=== PATIENT | female | born 1965 | race African-American/Black ===

== ENCOUNTER 2020-04-25 18:58 | Inpatient (IN) | payer MEDICAID ==
[~2020-04-25] VITALS: Ht 165.1 cm; Wt 97.1 kg
[2020-04-25] MEDS ORDERED: DILTIAZEM HCL 5MG/ML 5ML VIAL IV ONE (19:30)
[2020-04-25 19:50] LABS: BASOPHILS % 1.3 % (0.0-2.0); EOSINOPHILS % 10.3 % (0.0-5.0); HEMATOCRIT. 31.5 % (36.0-48.0); HEMOGLOBIN. 10.8 g/dL (12.0-16.0); LYMPHOCYTES % 22.9 % (20.0-50.0); MEAN CORPUSCULAR VOLUME 93.3 fL (81.0-99.0); MEAN PLATELET VOLUME 9.7 fl (7.4-10.4); MONOCYTES % 8.2 % (2.0-8.0); NEUTROPHILS % 57.3 % (40.0-76.0); PLATELET 234 x1000/uL (130-400); RED BLOOD CELL COUNT 3.38 mill/uL (4.2-5.4)
[2020-04-25 19:56] LABS: CHLORIDE 107 mEq/L (98-107)
[2020-04-25 20:00] LABS: INR 1.1; PARTIAL THROMBOPLASTIN TIME 30.5 sec (23.4-31.0); PROTHROMBIN TIME 11.9 sec (9.6-11.0)
[2020-04-25] MEDS ORDERED: DILTIAZEM HCL 180MG CAPSULE CD 24HR PO ONE (20:00)
[2020-04-25 23:10] VITALS: BP 173/85
[2020-04-26] VITALS (12 sets, daily range): BP systolic 128–173; BP diastolic 67–101
[2020-04-26] MEDS ORDERED: DIPHENHYDRAMINE 50MG/ML VIAL IV PRN (01:15)
[2020-04-26] MEDS ORDERED: ONDANSETRON HCL 4MG/2ML INJ IV PRN (01:15)
[2020-04-26] MEDS ORDERED: CLONIDINE 0.1MG TABLET PO PRN (01:15)
[2020-04-26] MEDS ORDERED: SIMETHICONE 80MG TABLET CHEW PO PRN (01:15)
[2020-04-26] MEDS ORDERED: ACETAMINOPHEN 325MG TABLET PO PRN (01:15)
[2020-04-26] MEDS ORDERED: GUAIFENESIN-DM 200MG-20MG/10ML UDC PO PRN ×2 (01:15→15:15)
[2020-04-26] MEDS ORDERED: DOCUSATE SODIUM 250MG CAPSULE PO PRN (01:15)
[2020-04-26] MEDS ORDERED: DOCU250C14 MT (01:16)
[2020-04-26] MEDS ORDERED: TUSSL MT (01:16)
[2020-04-26] MEDS ORDERED: COR6 MT (01:16)
[2020-04-26] MEDS ORDERED: CARD12 PO (01:16)
[2020-04-26] MEDS ORDERED: APIX2.5T MT (01:16)
[2020-04-26] MEDS ORDERED: CINA30 MT (01:16)
[2020-04-26] MEDS ORDERED: SIME80TA15 MT (01:16)
[2020-04-26 06:17] LABS: PHOSPHORUS 4.9 mg/dL (2.5-4.9)
[2020-04-26 06:27] LABS: BASOPHILS % 1.1 % (0.0-2.0); EOSINOPHILS % 12.2 % (0.0-5.0); HEMATOCRIT. 28.8 % (36.0-48.0); HEMOGLOBIN. 9.9 g/dL (12.0-16.0); LYMPHOCYTES % 28.1 % (20.0-50.0); MEAN CORPUSCULAR HEMOGLOBIN 32.2 pg (28.0-32.0); MEAN CORPUSCULAR VOLUME 93.3 fL (81.0-99.0); MEAN PLATELET VOLUME 9.5 fl (7.4-10.4); NEUTROPHILS % 49.6 % (40.0-76.0); PLATELET 187 x1000/uL (130-400); RED BLOOD CELL COUNT 3.09 mill/uL (4.2-5.4); RED CELL DISTRIBUTION WIDTH 17.1 % (11.6-14.6)
[2020-04-26] MEDS: CINACALCET HCL 30MG TABLET PO SCH (08:53)
[2020-04-26] MEDS: DILTIAZEM HCL 180MG CAPSULE CD 24HR PO SCH (08:55)
[2020-04-26] MEDS: CARVEDILOL 6.25 MG TABLET PO SCH ×2 (08:55→20:13)
[2020-04-26] MEDS ORDERED: APIXABAN 2.5 MG TABLET PO SCH (09:00)
[2020-04-26] MEDS: APIXABAN 5 MG TABLET PO SCH (20:12)
[2020-04-26] MEDS ORDERED: ATORVASTATIN CALCIUM 20MG TABLET PO SCH (21:00)
[2020-04-27] VITALS (11 sets, daily range): BP systolic 105–155; BP diastolic 71–96
[2020-04-27] MEDS: CINACALCET HCL 30MG TABLET PO SCH (09:28)
[2020-04-27] MEDS: CARVEDILOL 6.25 MG TABLET PO SCH (09:30)
[2020-04-27] MEDS: DILTIAZEM HCL 180MG CAPSULE CD 24HR PO SCH (09:32)
[2020-04-27] MEDS: APIXABAN 5 MG TABLET PO SCH (09:32)
[2020-04-27] MEDS ORDERED: SIME80TA15 MT (12:59)
[2020-04-27] MEDS ORDERED: TUSSL MT (12:59)
[2020-04-27] MEDS ORDERED: APIXABAN 2.5 MG TABLET PO SCH (21:00)
[2020-07-07] MEDS ORDERED: DILT120C88 PO (12:14)
[2020-07-09] MEDS ORDERED: DIPH28.34 TP (11:28)
== END 2020-04-27 18:39 | disposition home or self-care (01) | DRG 201 ==
LOC: ER 18:58 → 5EST 22:29 → CANRESERV 22:35 → ENRESERV 22:35
PROVIDERS: ADMIT Internal Medicine; ATTEND Internal Medicine
PROC: 5A1D70Z Performance of Urinary Filtration, Intermittent, Less than 6 Hours Per Day (ICD-10-PCS; principal; 2020-04-27)
DX: I48.20 Chronic atrial fibrillation, unspecified (principal); E11.22 Type 2 diabetes mellitus with diabetic chronic kidney disease; E66.01 Morbid (severe) obesity due to excess calories; E78.5 Hyperlipidemia, unspecified; I13.2 Hypertensive heart and chronic kidney disease with heart failure and with stage 5 chronic kidney disease, or end stage renal disease; I42.9 Cardiomyopathy, unspecified; I25.10 Atherosclerotic heart disease of native coronary artery without angina pectoris; D64.9 Anemia, unspecified; I50.9 Heart failure, unspecified; J45.909 Unspecified asthma, uncomplicated; N18.6 End stage renal disease; Z79.01 Long term (current) use of anticoagulants; Z87.01 Personal history of pneumonia (recurrent); Z95.810 Presence of automatic (implantable) cardiac defibrillator; Z99.2 Dependence on renal dialysis; Z71.3 Dietary counseling and surveillance; Z68.35 Body mass index [BMI] 35.0-35.9, adult
CPT/HCPCS: 36415; 71045; 80048; 80053; 80061; 83880; 84100; 84484; 85025; 93005; 93306; 93970; 96374; 99285; J3490

== ENCOUNTER 2020-06-29 11:40 | Inpatient (IN) | payer MEDICARE, MEDICAID ==
[~2020-06-29] VITALS: Ht 165.1 cm; Wt 98.0 kg
[~2020-06-29 11:40] MED LIST: APIX2.5T MT; CARD12 PO; CINA30 MT; COR6 MT; DOCU250C14 MT; SIME80TA15 MT; TUSSL MT
[2020-06-29 13:06] LABS: BASOPHILS % 0.9 % (0.0-2.0); EOSINOPHILS % 7.4 % (0.0-5.0); HEMATOCRIT. 31.2 % (36.0-48.0); HEMOGLOBIN. 10.8 g/dL (12.0-16.0); LYMPHOCYTES % 22.9 % (20.0-50.0); MEAN CORPUSCULAR VOLUME 95.8 fL (81.0-99.0); MEAN PLATELET VOLUME 9.1 fl (7.4-10.4); MONOCYTES % 6.4 % (2.0-8.0); NEUTROPHILS % 62.4 % (40.0-76.0); PLATELET 151 x1000/uL (130-400); RED BLOOD CELL COUNT 3.26 mill/uL (4.2-5.4); RED CELL DISTRIBUTION WIDTH 16.6 % (11.6-14.6)
[2020-06-29 13:14] LABS: CHLORIDE 104 mEq/L (98-107)
[2020-06-29 13:19] LABS: PHOSPHORUS 3.4 mg/dL (2.5-4.9)
[2020-06-29] MEDS ORDERED: APIXABAN 5 MG TABLET PO STA (13:25)
[2020-06-29] MEDS ORDERED: ONDANSETRON HCL 4MG/2ML INJ IV PRN (13:45)
[2020-06-29] MEDS ORDERED: DOCUSATE SODIUM 250MG CAPSULE PO PRN (13:45)
[2020-06-29] MEDS ORDERED: SIMETHICONE 80MG TABLET CHEW PO PRN (13:45)
[2020-06-29] MEDS ORDERED: GUAIFENESIN-DM 200MG-20MG/10ML UDC PO PRN (13:45)
[2020-06-29] MEDS ORDERED: TRAZODONE HCL 50MG TABLET PO PRN (13:45)
[2020-06-29] MEDS ORDERED: DILTIAZEM HCL 120MG CAPSULE CD 24HR PO ONE (15:00)
[2020-06-29] MEDS: DILTIAZEM HCL 30MG TABLET PO SCH (18:12)
[2020-06-29] MEDS ORDERED: DILTIAZEM HCL 5MG/ML 5ML VIAL IV PRN (19:30)
[2020-06-29] MEDS: ACETAMINOPHEN 325MG TABLET PO PRN (19:36)
[2020-06-29 20:40] VITALS: BP 133/81
[2020-06-29] MEDS ORDERED: CARVEDILOL 6.25 MG TABLET PO SCH (21:00)
[2020-06-29] MEDS: APIXABAN 2.5 MG TABLET PO SCH (21:22)
[2020-06-29] MEDS: CARVEDILOL 3.125 MG TABLET PO SCH (21:25)
[2020-06-29 21:28] VITALS: BP 133/81
[2020-06-30] VITALS: BP 121/64
[2020-06-30] MEDS: DILTIAZEM HCL 30MG TABLET PO SCH ×6 (00:25→21:38)
[2020-06-30 04:00] VITALS: BP 128/79
[2020-06-30] MEDS: CINACALCET HCL 30MG TABLET PO SCH (06:08)
[2020-06-30 07:04] LABS: CHLORIDE 105 mEq/L (98-107)
[2020-06-30 07:14] LABS: T4 FREE 0.95 ng/dL (0.76-1.46)
[2020-06-30 07:16] LABS: BASOPHILS % 0.7 % (0.0-2.0); EOSINOPHILS % 9.8 % (0.0-5.0); HEMATOCRIT. 31.3 % (36.0-48.0); HEMOGLOBIN. 10.9 g/dL (12.0-16.0); LYMPHOCYTES % 26.4 % (20.0-50.0); MEAN CORPUSCULAR HEMOGLOBIN 33.4 pg (28.0-32.0); MEAN CORPUSCULAR VOLUME 96.1 fL (81.0-99.0); MEAN PLATELET VOLUME 9.7 fl (7.4-10.4); MONOCYTES % 7.1 % (2.0-8.0); PLATELET 154 x1000/uL (130-400); RED BLOOD CELL COUNT 3.26 mill/uL (4.2-5.4); RED CELL DISTRIBUTION WIDTH 16.5 % (11.6-14.6)
[2020-06-30 08:00] VITALS: BP 130/89
[2020-06-30] MEDS ORDERED: DILTIAZEM HCL 180MG CAPSULE CD 24HR PO SCH (09:00)
[2020-06-30] MEDS: APIXABAN 2.5 MG TABLET PO SCH ×2 (09:44→16:41)
[2020-06-30] MEDS: CARVEDILOL 3.125 MG TABLET PO SCH ×2 (09:44→21:38)
[2020-06-30 12:00] VITALS: BP 111/80
[2020-06-30] MEDS ORDERED: DEXTROSE 50% WATER 50ML SYRINGE IV PRN (15:00)
[2020-06-30] MEDS ORDERED: IPRATROPIUM BROMIDE (0.02%) 0.5MG/2.5ML NEB HHN PRN (15:00)
[2020-06-30 16:09] VITALS: BP 126/63
[2020-06-30] MEDS: PSYLLIUM SEED PACKET PO SCH (16:41)
[2020-06-30] MEDS: BLOOD SUGAR DIAGNOSTIC STRIP TEST SCH ×2 (16:56→21:00)
[2020-06-30 20:00] VITALS: BP 119/60
[2020-07-01] VITALS (7 sets, daily range): BP systolic 103–124; BP diastolic 59–75
[2020-07-01] MEDS: DILTIAZEM HCL 30MG TABLET PO SCH ×3 (06:30→18:14)
[2020-07-01 07:09] LABS: EOSINOPHILS % 12.3 % (0.0-5.0); HEMOGLOBIN. 10.4 g/dL (12.0-16.0); LYMPHOCYTES % 27.5 % (20.0-50.0); MEAN CORPUSCULAR HEMOGLOBIN 33.2 pg (28.0-32.0); MEAN CORPUSCULAR VOLUME 95.8 fL (81.0-99.0); MEAN PLATELET VOLUME 9.7 fl (7.4-10.4); MONOCYTES % 8.4 % (2.0-8.0); NEUTROPHILS % 50.8 % (40.0-76.0); PLATELET 140 x1000/uL (130-400); RED BLOOD CELL COUNT 3.13 mill/uL (4.2-5.4); RED CELL DISTRIBUTION WIDTH 16.2 % (11.6-14.6)
[2020-07-01] MEDS: BLOOD SUGAR DIAGNOSTIC STRIP TEST SCH ×4 (07:10→21:07)
[2020-07-01 07:36] LABS: CHLORIDE 105 mEq/L (98-107)
[2020-07-01] MEDS: CARVEDILOL 3.125 MG TABLET PO SCH ×2 (08:59→21:14)
[2020-07-01] MEDS: PSYLLIUM SEED PACKET PO SCH ×2 (09:00→12:39)
[2020-07-01] MEDS: CINACALCET HCL 30MG TABLET PO SCH (09:11)
[2020-07-01] MEDS: APIXABAN 2.5 MG TABLET PO SCH ×2 (09:11→18:14)
[2020-07-01] MEDS ORDERED: DIGOXIN 500MCG/2ML AMP IV PRN (10:45)
[2020-07-02] VITALS: BP 112/74
[2020-07-02] MEDS: DILTIAZEM HCL 30MG TABLET PO SCH ×3 (00:33→12:34)
[2020-07-02 04:00] VITALS: BP 125/88
[2020-07-02 06:28] LABS: BASOPHILS % 1.1 % (0.0-2.0); EOSINOPHILS % 12.5 % (0.0-5.0); HEMATOCRIT. 31.2 % (36.0-48.0); HEMOGLOBIN. 10.7 g/dL (12.0-16.0); LYMPHOCYTES % 29.6 % (20.0-50.0); MEAN CORPUSCULAR VOLUME 96.2 fL (81.0-99.0); MEAN PLATELET VOLUME 9.8 fl (7.4-10.4); MONOCYTES % 8.3 % (2.0-8.0); NEUTROPHILS % 48.5 % (40.0-76.0); PLATELET 151 x1000/uL (130-400); RED BLOOD CELL COUNT 3.24 mill/uL (4.2-5.4); RED CELL DISTRIBUTION WIDTH 16.5 % (11.6-14.6)
[2020-07-02] MEDS: BLOOD SUGAR DIAGNOSTIC STRIP TEST SCH ×2 (06:44→12:28)
[2020-07-02 06:47] LABS: CHLORIDE 107 mEq/L (98-107)
[2020-07-02 08:00] VITALS: BP 99/51
[2020-07-02] MEDS: CARVEDILOL 3.125 MG TABLET PO SCH (09:00)
[2020-07-02] MEDS: APIXABAN 2.5 MG TABLET PO SCH (09:21)
[2020-07-02] MEDS: CINACALCET HCL 30MG TABLET PO SCH (09:21)
[2020-07-02] MEDS: ACETAMINOPHEN 325MG TABLET PO PRN (09:26)
[2020-07-02 12:00] VITALS: BP 132/78
[2020-07-02 16:00] VITALS: BP 122/87
[2020-07-02 16:17] VITALS: BP 20/132
== END 2020-07-02 17:00 | DRG 308 ==
LOC: ER 11:40 → 8WST 12:57 → ENRESERV 18:31
PROVIDERS: ADMIT Internal Medicine; ATTEND Internal Medicine
PROC: 5A1D70Z Performance of Urinary Filtration, Intermittent, Less than 6 Hours Per Day (ICD-10-PCS; principal; 2020-06-29)
PROC: 5A1D70Z Performance of Urinary Filtration, Intermittent, Less than 6 Hours Per Day (ICD-10-PCS; 2020-07-01)
PROC: 5A1D70Z Performance of Urinary Filtration, Intermittent, Less than 6 Hours Per Day (ICD-10-PCS; 2020-07-02)
DX: I48.19 Other persistent atrial fibrillation (principal); N18.6 End stage renal disease; I13.2 Hypertensive heart and chronic kidney disease with heart failure and with stage 5 chronic kidney disease, or end stage renal disease; D61.818 Other pancytopenia; I31.3 Pericardial effusion (noninflammatory); I50.22 Chronic systolic (congestive) heart failure; I42.0 Dilated cardiomyopathy; E11.649 Type 2 diabetes mellitus with hypoglycemia without coma; E66.01 Morbid (severe) obesity due to excess calories; I49.5 Sick sinus syndrome; E05.90 Thyrotoxicosis, unspecified without thyrotoxic crisis or storm; E78.5 Hyperlipidemia, unspecified; E11.42 Type 2 diabetes mellitus with diabetic polyneuropathy; R26.9 Unspecified abnormalities of gait and mobility; J45.909 Unspecified asthma, uncomplicated; N25.0 Renal osteodystrophy; I27.20 Pulmonary hypertension, unspecified; E11.22 Type 2 diabetes mellitus with diabetic chronic kidney disease; Z99.2 Dependence on renal dialysis; Z79.01 Long term (current) use of anticoagulants; Z95.810 Presence of automatic (implantable) cardiac defibrillator; Z68.35 Body mass index [BMI] 35.0-35.9, adult; Z79.899 Other long term (current) drug therapy; Z82.3 Family history of stroke; Z82.49 Family history of ischemic heart disease and other diseases of the circulatory system; D64.9 Anemia, unspecified; R00.0 Tachycardia, unspecified
CPT/HCPCS: 36415; 71045; 80053; 82962; 83036; 83735; 84100; 84439; 84443; 84484; 85025; 93005; 93306; 97116; 97162; 97166; 97535; 99285

== ENCOUNTER 2022-01-02 22:31 | Inpatient (IN) | payer MEDICARE, MEDICAID ==
[~2022-01-02] VITALS: Ht 165.1 cm; Wt 97.2 kg
[~2022-01-02 22:31] MED LIST changes: +ALBU6.7H15 INH; -CARD12 PO; +DEX6 PO; +DILT120C88 PO; +DIPH28.34 TP; +FLUT1DIS3 INH
[2022-01-02] MEDS ORDERED: IPRATROPIUM BROMIDE (0.02%) 0.5MG/2.5ML NEB HHN STA (23:04)
[2022-01-02] MEDS ORDERED: ALBUTEROL (0.083%) 2.5MG/3ML NEB HHN STA (23:04)
[2022-01-02] MEDS ORDERED: METHYLPREDNISOLONE SOD SUCC 125 MG/2 ML VIAL IV STA (23:04)
[2022-01-02 23:19] LABS: BASOPHILS % 1.2 % (0.0-2.0); EOSINOPHILS % 2.5 % (0.0-5.0); HEMATOCRIT. 29.8 % (36.0-48.0); HEMOGLOBIN. 10.6 g/dL (12.0-16.0); LYMPHOCYTES % 24.2 % (20.0-50.0); MEAN CORPUSCULAR HEMOGLOBIN 35.5 pg (28.0-32.0); MEAN PLATELET VOLUME 9.3 fl (7.4-10.4); MONOCYTES % 7.2 % (2.0-8.0); NEUTROPHILS % 64.9 % (40.0-76.0); PLATELET 154 x1000/uL (130-400); RED BLOOD CELL COUNT 2.98 mill/uL (4.2-5.4); RED CELL DISTRIBUTION WIDTH 16.7 % (11.6-14.6)
[2022-01-02 23:25] LABS: CHLORIDE 100 mEq/L (98-107)
[2022-01-03] MEDS ORDERED: MAGNESIUM/ALUMINUM HYDROXIDE/SIMETHICONE 30ML UDC PO PRN (08:15)
[2022-01-03] MEDS ORDERED: IPRATROPIUM/ALBUTEROL 0.5-3(2.5)MG/3ML NEB NEB PRN ×2 (08:15→15:00)
[2022-01-03] MEDS ORDERED: ACETAMINOPHEN 325MG TABLET PO PRN ×2 (08:15)
[2022-01-03] MEDS ORDERED: ENOXAPARIN 40MG/0.4ML SYR SUBCUT SCH (08:15)
[2022-01-03] MEDS ORDERED: ONDANSETRON HCL 4MG/2ML INJ IV PRN (08:15)
[2022-01-03] MEDS ORDERED: HYDROCODONE/ACETAMINOPHEN 5/325MG TABLET PO PRN (08:15)
[2022-01-03] MEDS ORDERED: GUAIFENESIN 200MG/10ML SUGAR FREE UDC PO PRN (08:15)
[2022-01-03] MEDS ORDERED: CLONIDINE 0.1MG TABLET PO PRN (08:15)
[2022-01-03] MEDS ORDERED: ENOXAPARIN 30MG/0.3ML SYR SUBCUT SCH (09:00)
[2022-01-03] MEDS ORDERED: NALOXONE HCL 0.4MG/ML VIAL IV PRN (10:30)
[2022-01-03] MEDS ORDERED: APIX5TAB MT (11:09)
[2022-01-03 12:00] VITALS: BP_SYST 134; BP_DIAS 83; BP_DIAS 92
[2022-01-03] MEDS: CARVEDILOL 6.25 MG TABLET PO SCH ×2 (12:29→17:36)
[2022-01-03] MEDS: APIXABAN 5 MG TABLET PO SCH ×2 (12:29→17:35)
[2022-01-03] MEDS: CINACALCET HCL 30MG TABLET PO SCH (12:29)
[2022-01-03 14:04] LABS: HEPATITIS B SURFACE ANTIGEN NEGATIVE
[2022-01-03] MEDS ORDERED: MAGNESIUM HYDROXIDE 400MG/5ML 30ML UDC PO PRN (15:00)
[2022-01-03] MEDS ORDERED: GUAIFENESIN/DM 600MG/30MG ER TAB 12HR PO PRN (15:00)
[2022-01-03] MEDS ORDERED: IPRATROPIUM/ALBUTEROL 0.5-3(2.5)MG/3ML NEB NEB SCH (15:00)
[2022-01-03 16:00] VITALS: BP 109/74
[2022-01-03] MEDS: POLYETHYLENE GLYCOL 3350 (17GM) 1 DOSE PACK PO SCH (17:35)
[2022-01-03] MEDS: PREDNISONE 20MG TABLET PO SCH (17:35)
[2022-01-03 20:00] VITALS: BP 125/74
[2022-01-04] VITALS: BP 112/67
[2022-01-04 04:30] VITALS: BP 104/55
[2022-01-04 06:11] LABS: HEMATOCRIT. 27.5 % (36.0-48.0); HEMOGLOBIN. 9.7 g/dL (12.0-16.0); MEAN CORPUSCULAR HEMOGLOBIN 35.3 pg (28.0-32.0); MEAN CORPUSCULAR VOLUME 99.9 fL (81.0-99.0); MEAN PLATELET VOLUME 10.2 fl (7.4-10.4); PLATELET 124 x1000/uL (130-400); RED BLOOD CELL COUNT 2.76 mill/uL (4.2-5.4); RED CELL DISTRIBUTION WIDTH 16.8 % (11.6-14.6)
[2022-01-04 06:23] LABS: PHOSPHORUS 4.6 mg/dL (2.5-4.9)
[2022-01-04] MEDS: PREDNISONE 20MG TABLET PO SCH (07:55)
[2022-01-04] MEDS: POLYETHYLENE GLYCOL 3350 (17GM) 1 DOSE PACK PO SCH (07:55)
[2022-01-04] MEDS: CINACALCET HCL 30MG TABLET PO SCH (07:55)
[2022-01-04] MEDS: APIXABAN 5 MG TABLET PO SCH ×2 (07:56→17:09)
[2022-01-04] MEDS: CARVEDILOL 6.25 MG TABLET PO SCH ×2 (07:57→17:00)
[2022-01-04 08:00] VITALS: BP 116/73
[2022-01-04 09:24] LABS: PLATELET ESTIMATE SLIGHTLY DECREASED
[2022-01-04] MEDS ORDERED: HYDR-4134 PO (11:49)
[2022-01-04 12:00] VITALS: BP 108/76
[2022-01-04] MEDS ORDERED: DILTIAZEM HCL 30MG TABLET PO SCH (14:00)
[2022-01-04] MEDS ORDERED: MYL30 PO (14:17)
[2022-01-04] MEDS ORDERED: POLY17PO3 PO (14:17)
[2022-01-04] MEDS ORDERED: GUAI-741 PO (14:17)
[2022-01-04] MEDS ORDERED: P20 PO (14:45)
[2022-01-04 16:00] VITALS: BP 116/48
[2022-01-04 16:50] VITALS: BP 116/48
== END 2022-01-04 17:50 | disposition home health service (06) | DRG 202 ==
LOC: ER 22:31 → MICUSO 01-03 03:11 → EDBEDREQ 01-03 03:20 → EDBEDREQDT 01-03 03:20 → EDBEDREQTM 01-03 03:20 → 8WST 01-03 10:57
PROVIDERS: ADMIT Internal Medicine; ATTEND Internal Medicine
PROC: 4B02XTZ Measurement of Cardiac Defibrillator, External Approach (ICD-10-PCS; principal; 2022-01-04)
PROC: 5A1D70Z Performance of Urinary Filtration, Intermittent, Less than 6 Hours Per Day (ICD-10-PCS; 2022-01-04)
DX: J45.901 Unspecified asthma with (acute) exacerbation (principal); N18.6 End stage renal disease; I13.2 Hypertensive heart and chronic kidney disease with heart failure and with stage 5 chronic kidney disease, or end stage renal disease; I42.0 Dilated cardiomyopathy; I48.19 Other persistent atrial fibrillation; I42.8 Other cardiomyopathies; E11.22 Type 2 diabetes mellitus with diabetic chronic kidney disease; I34.0 Nonrheumatic mitral (valve) insufficiency; D69.6 Thrombocytopenia, unspecified; E78.5 Hyperlipidemia, unspecified; D63.8 Anemia in other chronic diseases classified elsewhere; I50.9 Heart failure, unspecified; I27.20 Pulmonary hypertension, unspecified; Z20.822 Contact with and (suspected) exposure to COVID-19; Z79.01 Long term (current) use of anticoagulants; Z91.048 Other nonmedicinal substance allergy status; Z79.899 Other long term (current) drug therapy; Z99.2 Dependence on renal dialysis; Z95.810 Presence of automatic (implantable) cardiac defibrillator; Z87.01 Personal history of pneumonia (recurrent)
CPT/HCPCS: 36415; 71045; 80048; 80053; 83735; 83880; 84100; 84484; 85025; 86705; 86709; 86803; 87340; 87426; 93005; 93306; 94640; 99285; J2930; J7512

== ENCOUNTER 2022-08-19 07:23 | Inpatient (IN) | payer MEDICARE, MEDICAID ==
[~2022-08-19] VITALS: Ht 165.1 cm; Wt 97.1 kg
[~2022-08-19 07:23] MED LIST changes: -APIX2.5T MT; +APIX5TAB MT; -DEX6 PO; +GUAI-741 PO; +HYDR-4134 PO; +MYL30 PO; +P20 PO; +POLY17PO3 PO
[2022-08-19 09:03] LABS: CHLORIDE 97 mEq/L (98-107)
[2022-08-19 09:08] LABS: BASOPHILS % 0.6 % (0.0-2.0); EOSINOPHILS % 4.6 % (0.0-5.0); HEMATOCRIT. 30.4 % (36.0-48.0); HEMOGLOBIN. 10.4 g/dL (12.0-16.0); LYMPHOCYTES % 20.3 % (20.0-50.0); MEAN CORPUSCULAR HEMOGLOBIN 35.1 pg (28.0-32.0); MEAN CORPUSCULAR VOLUME 102.2 fL (81.0-99.0); MEAN PLATELET VOLUME 9.5 fl (7.4-10.4); MONOCYTES % 9.6 % (2.0-8.0); NEUTROPHILS % 64.9 % (40.0-76.0); PLATELET 139 x1000/uL (130-400); RED BLOOD CELL COUNT 2.97 mill/uL (4.2-5.4); RED CELL DISTRIBUTION WIDTH 16.1 % (11.6-14.6)
[2022-08-19] MEDS ORDERED: CEFTRIAXONE 1 G PREMIX 50 ML IV NR (10:45)
[2022-08-19] MEDS ORDERED: FUROSEMIDE 40MG/4ML VIAL IVP NR (10:45)
[2022-08-19] MEDS ORDERED: AZITHROMYCIN 500MG/250ML 250 ML IV NR (10:45)
[2022-08-19 14:02] LABS: CLARITY URINE CLEAR (CLEAR); COLOR URINE DARK YELLOW (YELLOW); KETONES URINE TRACE (NEGATIVE); LEUKOCYTE ESTERASE URINE 1+ (NEGATIVE); NITRITE URINE NEGATIVE (NEGATIVE); OCCULT BLOOD URINE 1+ (NEGATIVE); PROTEIN URINE 2+ (NEGATIVE); SPECIFIC GRAVITY URINE 1.018 (1.005-1.030)
[2022-08-19 16:30] VITALS: BP 112/84
[2022-08-19] MEDS ORDERED: FURO-151 PO (16:40)
[2022-08-19] MEDS ORDERED: DILT360T13 PO (16:40)
[2022-08-19 17:21] VITALS: BP 112/84
[2022-08-19] MEDS ORDERED: IPRATROPIUM/ALBUTEROL 0.5-3(2.5)MG/3ML NEB HHN NR (18:30)
[2022-08-19] MEDS ORDERED: ACETAMINOPHEN 325MG TABLET PO PRN (18:30)
[2022-08-19] MEDS ORDERED: IPRATROPIUM/ALBUTEROL 0.5-3(2.5)MG/3ML NEB HHN PRN (18:30)
[2022-08-19] MEDS ORDERED: DOCUSATE SODIUM 250MG CAPSULE PO PRN (18:30)
[2022-08-19] MEDS ORDERED: GUAIFENESIN 200MG/10ML SUGAR FREE UDC PO PRN (18:45)
[2022-08-19 20:00] VITALS: BP 106/65
[2022-08-19] MEDS: APIXABAN 5 MG TABLET PO SCH (20:43)
[2022-08-20] VITALS (13 sets, daily range): BP systolic 98–131; BP diastolic 41–76
[2022-08-20 07:59] LABS: EOSINOPHILS % 4.2 % (0.0-5.0); HEMATOCRIT. 29.7 % (36.0-48.0); HEMOGLOBIN. 10.4 g/dL (12.0-16.0); MEAN CORPUSCULAR HEMOGLOBIN 35.5 pg (28.0-32.0); MEAN CORPUSCULAR VOLUME 101.3 fL (81.0-99.0); MEAN PLATELET VOLUME 9.9 fl (7.4-10.4); MONOCYTES % 10.5 % (2.0-8.0); NEUTROPHILS % 62.3 % (40.0-76.0); PLATELET 144 x1000/uL (130-400); RED BLOOD CELL COUNT 2.93 mill/uL (4.2-5.4)
[2022-08-20] MEDS: CINACALCET HCL 30MG TABLET PO SCH (08:12)
[2022-08-20] MEDS: DILTIAZEM HCL 120MG CAPSULE ER 24HR PO SCH (08:12)
[2022-08-20] MEDS: APIXABAN 5 MG TABLET PO SCH ×2 (08:12→18:27)
[2022-08-20] MEDS: FAMOTIDINE 20MG/2ML VIAL IV SCH (08:12)
[2022-08-20] MEDS: POLYETHYLENE GLYCOL 3350 (17GM) 1 DOSE PACK PO SCH (08:13)
[2022-08-20 08:32] LABS: CHLORIDE 98 mEq/L (98-107)
[2022-08-20 08:46] LABS: HDL CHOLESTEROL 44 mg/dL (40-59); LDL CHOLESTEROL 70 mg/dL (5-100); PHOSPHORUS 4.7 mg/dL (2.5-4.9); T4 FREE 0.77 ng/dL (0.76-1.46)
[2022-08-20 08:59] LABS: VITAMIN B12 SERUM 644 pg/mL (211-911)
[2022-08-20] MEDS ORDERED: FUROSEMIDE 40MG TABLET PO SCH (09:00)
[2022-08-20] MEDS ORDERED: AZITHROMYCIN 500 MG in DEXT 5% WATER 250 ML IV SCH (10:00)
[2022-08-20] MEDS: CEFTRIAXONE 1,000 MG in DEXTROSE 5% WATER 50 ML IV SCH (10:53)
[2022-08-20] MEDS ORDERED: ONDANSETRON HCL 4MG/2ML INJ IV PRN (15:45)
[2022-08-20 17:23] LABS: HEPATITIS B SURFACE ANTIGEN NEGATIVE
[2022-08-21] VITALS (12 sets, daily range): BP systolic 100–127; BP diastolic 52–70
[2022-08-21 07:47] LABS: EOSINOPHILS % 5.9 % (0.0-5.0); HEMATOCRIT. 29.5 % (36.0-48.0); HEMOGLOBIN. 10.3 g/dL (12.0-16.0); LYMPHOCYTES % 20.6 % (20.0-50.0); MEAN CORPUSCULAR HEMOGLOBIN 35.5 pg (28.0-32.0); MEAN CORPUSCULAR VOLUME 102.1 fL (81.0-99.0); MONOCYTES % 10.3 % (2.0-8.0); NEUTROPHILS % 62.2 % (40.0-76.0); PLATELET 145 x1000/uL (130-400); RED BLOOD CELL COUNT 2.89 mill/uL (4.2-5.4); RED CELL DISTRIBUTION WIDTH 15.8 % (11.6-14.6)
[2022-08-21] MEDS: DILTIAZEM HCL 120MG CAPSULE ER 24HR PO SCH (08:23)
[2022-08-21] MEDS: APIXABAN 5 MG TABLET PO SCH ×2 (08:26→16:09)
[2022-08-21] MEDS: CINACALCET HCL 30MG TABLET PO SCH (08:26)
[2022-08-21] MEDS: CEFTRIAXONE 1,000 MG in DEXTROSE 5% WATER 50 ML IV SCH (08:26)
[2022-08-21] MEDS: FAMOTIDINE 20MG/2ML VIAL IV SCH (08:26)
[2022-08-21] MEDS: POLYETHYLENE GLYCOL 3350 (17GM) 1 DOSE PACK PO SCH (09:00)
[2022-08-21] MEDS ORDERED: GUAIFENESIN 600MG ER TABLET PO SCH (09:00)
[2022-08-21] MEDS ORDERED: GUAIFENESIN 600MG ER TABLET PO PRN (16:55)
== END 2022-08-21 18:18 | disposition home or self-care (01) | DRG 280 ==
LOC: ER 07:40 → 8WST 11:58
PROVIDERS: ADMIT Internal Medicine; ATTEND Internal Medicine
PROC: 5A1D70Z Performance of Urinary Filtration, Intermittent, Less than 6 Hours Per Day (ICD-10-PCS; principal; 2022-08-20)
PROC: 5A1D70Z Performance of Urinary Filtration, Intermittent, Less than 6 Hours Per Day (ICD-10-PCS; 2022-08-21)
DX: I21.4 Non-ST elevation (NSTEMI) myocardial infarction (principal); I50.23 Acute on chronic systolic (congestive) heart failure; J96.00 Acute respiratory failure, unspecified whether with hypoxia or hypercapnia; N18.6 End stage renal disease; I13.2 Hypertensive heart and chronic kidney disease with heart failure and with stage 5 chronic kidney disease, or end stage renal disease; R91.8 Other nonspecific abnormal finding of lung field; E21.3 Hyperparathyroidism, unspecified; Z20.822 Contact with and (suspected) exposure to COVID-19; J45.909 Unspecified asthma, uncomplicated; E78.5 Hyperlipidemia, unspecified; D53.9 Nutritional anemia, unspecified; I48.0 Paroxysmal atrial fibrillation; Z95.810 Presence of automatic (implantable) cardiac defibrillator; Z99.2 Dependence on renal dialysis; Z98.891 History of uterine scar from previous surgery
CPT/HCPCS: 36415; 71045; 80048; 80053; 80061; 81003; 82607; 82746; 82962; 83735; 83880; 84100; 84145; 84439; 84443; 84484; 85025; 86705; 86709; 86803; 87340; 87426; 90935; 94640; 99291; C9803; J0456; J0696; J1940; J2405; J3490; J7060

== ENCOUNTER 2023-01-01 15:18 | Inpatient (IN) | payer MEDICARE, MEDICAID ==
[~2023-01-01] VITALS: Ht 157.5 cm; Wt 88.9 kg
[~2023-01-01 15:18] MED LIST changes: +AZIT500T8 PO; -DILT120C88 PO; +DILT30TA37 PO; -DIPH28.34 TP; -DOCU250C14 MT; -FLUT1DIS3 INH; +FURO-151 PO; -GUAI-741 PO; +GUAI600T44 PO; -HYDR-4134 PO; -MYL30 PO; -P20 PO; -POLY17PO3 PO; -SIME80TA15 MT; -TUSSL MT
[2023-01-01 17:48] LABS: BASOPHILS % 0.9 % (0.0-2.0); EOSINOPHILS % 3.8 % (0.0-5.0); HEMATOCRIT. 31.1 % (36.0-48.0); HEMOGLOBIN. 10.8 g/dL (12.0-16.0); LYMPHOCYTES % 20.3 % (20.0-50.0); MEAN CORPUSCULAR HEMOGLOBIN 35.3 pg (28.0-32.0); MEAN CORPUSCULAR VOLUME 101.9 fL (81.0-99.0); MEAN PLATELET VOLUME 10.3 fl (7.4-10.4); MONOCYTES % 9.9 % (2.0-8.0); NEUTROPHILS % 65.1 % (40.0-76.0); PLATELET 178 x1000/uL (130-400); RED BLOOD CELL COUNT 3.06 mill/uL (4.2-5.4); RED CELL DISTRIBUTION WIDTH 17.2 % (11.6-14.6)
[2023-01-01 17:51] LABS: CHLORIDE 101 mEq/L (98-107)
[2023-01-01 17:54] LABS: INR 1.1; PARTIAL THROMBOPLASTIN TIME 28.3 sec (23.4-31.0); PROTHROMBIN TIME 12.1 sec (9.6-11.0)
[2023-01-01 18:16] LABS: BG BASE EXCESS 1.3 mmol/L (-2.0-2.0); BG CARBOXYHEMOGLOBIN 1.1 % (0.5-1.5); BG DEOXYHEMOGLOBIN 3.2 % (0.0-5.0); BG FRACTION INSPIRED OXYGEN 32; BG HCO3 ACT 25.1 mmol/L (22.0-26.0); BG OXYGEN SATURATION 96.8 % (92.0-98.5); BG OXYHEMOGLOBIN 95.7 % (94.0-97.0); BG PCO2 36.8 mmHg (35.0-45.0); BG PH 7.451 (7.350-7.450); BG PO2 93.6 mmHg (75.0-100.0); BG SAMPLE SITE LEFT BRACHIAL; BG TOTAL HEMOGLOBIN 13.8 g/dL (12.0-18.0); BG VENT MODE NASAL CANNULA
[2023-01-01] MEDS ORDERED: ENOXAPARIN 40MG/0.4ML SYR SUBCUT SCH (23:30)
[2023-01-01] MEDS ORDERED: IPRATROPIUM/ALBUTEROL 0.5-3(2.5)MG/3ML NEB NEB PRN (23:30)
[2023-01-01] MEDS ORDERED: FUROSEMIDE 40MG/4ML VIAL IV SCH (23:30)
[2023-01-01] MEDS ORDERED: ACETAMINOPHEN 325MG TABLET PO PRN (23:30)
[2023-01-01] MEDS ORDERED: DOCUSATE SODIUM 100MG CAPSULE PO PRN (23:30)
[2023-01-01] MEDS ORDERED: CLONIDINE 0.1MG TABLET PO PRN (23:30)
[2023-01-02] VITALS (11 sets, daily range): BP systolic 92–124; BP diastolic 46–88
[2023-01-02 00:14] LABS: TOTAL IRON BINDING CAPACITY 259 ug/dL (250-450)
[2023-01-02 00:41] LABS: FOLIC ACID (FOLATE) SERUM 12.6 ng/mL (>5.38)
[2023-01-02] MEDS ORDERED: AZITHROMYCIN 500 MG in DEXT 5% WATER 250 ML IV SCH ×2 (01:00→22:00)
[2023-01-02 02:12] LABS: AMYLASE 108 IU/L (25-115); GAMMA GLUTAMYL TRANSPEPTIDASE 197 IU/L (7-32)
[2023-01-02 04:36] LABS: HEPATITIS B SURFACE AB 6.6 mIU/mL
[2023-01-02 04:47] LABS: HEPATITIS B SURFACE ANTIGEN NEGATIVE
[2023-01-02] MEDS: GUAIFENESIN 200MG/10ML SUGAR FREE UDC PO PRN ×2 (06:10→17:37)
[2023-01-02] MEDS: CARVEDILOL 6.25 MG TABLET PO SCH ×2 (08:57→17:00)
[2023-01-02] MEDS: ASPIRIN 81MG EC TABLET PO SCH (08:58)
[2023-01-02] MEDS: APIXABAN 5 MG TABLET PO SCH ×2 (08:58→17:37)
[2023-01-02] MEDS ORDERED: CINA60 PO (09:10)
[2023-01-02] MEDS ORDERED: DILT360C37 PO (09:10)
[2023-01-02] MEDS ORDERED: FURO40TA5 PO (09:10)
[2023-01-02] MEDS: CEFTRIAXONE 1GM PREMIX 50 ML IV SCH (11:37)
[2023-01-02] MEDS: BUDESONIDE 0.5MG/2ML NEB HHN SCH ×2 (13:00→19:55)
[2023-01-02] MEDS: IPRATROPIUM/ALBUTEROL 0.5-3(2.5)MG/3ML NEB HHN SCH ×2 (13:00→20:00)
[2023-01-02 16:48] LABS: BASOPHILS % 0.9 % (0.0-2.0); EOSINOPHILS % 2.8 % (0.0-5.0); HEMATOCRIT. 30.6 % (36.0-48.0); HEMOGLOBIN. 10.8 g/dL (12.0-16.0); LYMPHOCYTES % 17.3 % (20.0-50.0); MEAN CORPUSCULAR HEMOGLOBIN 35.6 pg (28.0-32.0); MEAN PLATELET VOLUME 9.5 fl (7.4-10.4); MONOCYTES % 10.5 % (2.0-8.0); NEUTROPHILS % 68.5 % (40.0-76.0); PLATELET 175 x1000/uL (130-400); RED BLOOD CELL COUNT 3.03 mill/uL (4.2-5.4); RED CELL DISTRIBUTION WIDTH 17.5 % (11.6-14.6)
[2023-01-02 16:55] LABS: CHLORIDE 101 mEq/L (98-107)
[2023-01-02 17:04] LABS: CREATINE KINASE MB FRACTION 2.7 ng/mL (0.5-3.6)
[2023-01-02 17:12] LABS: PHOSPHORUS 2.8 mg/dL (2.5-4.9); T4 FREE 0.96 ng/dL (0.76-1.46)
[2023-01-02] MEDS ORDERED: BENZONATATE 100MG CAPSULE PO PRN (19:45)
[2023-01-02] MEDS ORDERED: FAMOTIDINE 20MG TABLET PO SCH (21:00)
[2023-01-02] MEDS ORDERED: IPRATROPIUM BROMIDE (0.02%) 0.5MG/2.5ML NEB HHN PRN (21:30)
[2023-01-02] MEDS ORDERED: ALBUTEROL (0.083%) 2.5MG/3ML NEB HHN PRN (21:30)
[2023-01-03] VITALS (15 sets, daily range): BP systolic 93–125; BP diastolic 51–74
[2023-01-03 01:58] LABS: CREATINE KINASE MB FRACTION 2.3 ng/mL (0.5-3.6)
[2023-01-03] MEDS: GUAIFENESIN 200MG/10ML SUGAR FREE UDC PO PRN (04:23)
[2023-01-03 07:15] LABS: BASOPHILS % 1.2 % (0.0-2.0); EOSINOPHILS % 4.3 % (0.0-5.0); HEMOGLOBIN. 10.6 g/dL (12.0-16.0); LYMPHOCYTES % 21.8 % (20.0-50.0); MEAN CORPUSCULAR HEMOGLOBIN 34.3 pg (28.0-32.0); MEAN CORPUSCULAR VOLUME 100.8 fL (81.0-99.0); MEAN PLATELET VOLUME 9.4 fl (7.4-10.4); MONOCYTES % 11.9 % (2.0-8.0); NEUTROPHILS % 60.8 % (40.0-76.0); PLATELET 174 x1000/uL (130-400); RED BLOOD CELL COUNT 3.07 mill/uL (4.2-5.4); RED CELL DISTRIBUTION WIDTH 17.3 % (11.6-14.6)
[2023-01-03 08:08] LABS: CHLORIDE 100 mEq/L (98-107)
[2023-01-03] MEDS: APIXABAN 5 MG TABLET PO SCH (08:42)
[2023-01-03] MEDS: CARVEDILOL 6.25 MG TABLET PO SCH (08:42)
[2023-01-03] MEDS: ASPIRIN 81MG EC TABLET PO SCH (08:42)
[2023-01-03] MEDS: IPRATROPIUM BROMIDE (0.02%) 0.5MG/2.5ML NEB HHN SCH ×2 (09:22→15:00)
[2023-01-03] MEDS: ALBUTEROL (0.083%) 2.5MG/3ML NEB HHN SCH ×2 (09:22→15:00)
[2023-01-03] MEDS: BUDESONIDE 0.5MG/2ML NEB HHN SCH ×2 (09:23→15:00)
[2023-01-03] MEDS: CEFTRIAXONE 1GM PREMIX 50 ML IV SCH (10:33)
[2023-01-03] MEDS ORDERED: AZITHROMYCIN 500 MG TABLET PO SCH (21:00)
[2023-01-04] MEDS ORDERED: AMLODIPINE 2.5MG TABLET PO SCH (09:00)
== END 2023-01-03 18:24 | disposition home or self-care (01) | DRG 189 ==
LOC: ER 15:18 → MICUSO 20:21 → EDBEDREQTM 20:26 → EDBEDREQ 20:26 → 7WST 01-02 08:23
PROVIDERS: ADMIT Internal Medicine; ATTEND Internal Medicine
PROC: 5A1D70Z Performance of Urinary Filtration, Intermittent, Less than 6 Hours Per Day (ICD-10-PCS; principal; 2023-01-02)
DX: J96.01 Acute respiratory failure with hypoxia (principal); J18.1 Lobar pneumonia, unspecified organism; N18.6 End stage renal disease; R18.8 Other ascites; I31.39 Other pericardial effusion (noninflammatory); I42.0 Dilated cardiomyopathy; I50.22 Chronic systolic (congestive) heart failure; I13.2 Hypertensive heart and chronic kidney disease with heart failure and with stage 5 chronic kidney disease, or end stage renal disease; I24.8 Other forms of acute ischemic heart disease; J20.9 Acute bronchitis, unspecified; D53.9 Nutritional anemia, unspecified; Z20.822 Contact with and (suspected) exposure to COVID-19; E11.22 Type 2 diabetes mellitus with diabetic chronic kidney disease; J45.909 Unspecified asthma, uncomplicated; D63.8 Anemia in other chronic diseases classified elsewhere; Z99.2 Dependence on renal dialysis; I48.91 Unspecified atrial fibrillation; E21.3 Hyperparathyroidism, unspecified; E78.5 Hyperlipidemia, unspecified; I25.10 Atherosclerotic heart disease of native coronary artery without angina pectoris; K42.9 Umbilical hernia without obstruction or gangrene; G47.33 Obstructive sleep apnea (adult) (pediatric); Z79.4 Long term (current) use of insulin; Z79.01 Long term (current) use of anticoagulants; Z79.82 Long term (current) use of aspirin; Z79.899 Other long term (current) drug therapy; Z95.810 Presence of automatic (implantable) cardiac defibrillator; Z87.891 Personal history of nicotine dependence; Z88.0 Allergy status to penicillin
CPT/HCPCS: 36415; 36600; 71045; 71250; 74176; 76604; 76705; 80053; 82150; 82248; 82375; 82550; 82553; 82607; 82746; 82805; 82977; 83540; 83550; 83605; 83880; 84100; 84145; 84439; 84443; 84484; 85025; 85379; 86706; 86850; 86900; 87340; 87426; 90935; 93005; 93970; 94640; 97162; 99291; J0456; J0696; J1940; J7060; J7626

== ENCOUNTER → 2024-01-02 | Outpatient (CLI) | payer MEDICARE, MEDICAID ==
[~2024-01-02] MED LIST changes: -APIX5TAB MT; +ATOR10TA69 PO; +ATROV INH; -AZIT500T8 PO; +CARV6.2548 PO; +CHOL-36 PO; -CINA30 MT; +CINA60 PO; -COR6 MT; +DILT180C87 MT; -DILT30TA37 PO; -FURO-151 PO; +FURO40TA5 PO; +GUAI-453 MT; -GUAI600T44 PO; +IPRA3AMP9 HHN; +SUCR500T PO
== END | disposition home or self-care (01) ==
LOC: RAD 10:16
PROVIDERS: ATTEND Internal Medicine Critical Care Medicine
DX: I51.7 Cardiomegaly (principal); J90 Pleural effusion, not elsewhere classified; R91.8 Other nonspecific abnormal finding of lung field; R05.9 Cough, unspecified; Z95.810 Presence of automatic (implantable) cardiac defibrillator
CPT/HCPCS: 71046